=== PATIENT | male | born 1960 | race Caucasian/White ===

== ENCOUNTER 2017-09-11 12:35 | Day surgery (SDC) | payer OTHER ==
[~2017-09-11 12:35] MED LIST: CLONAZEPAM1 MG PO; LUNESTA3 MG PO; ZOLOFT100 MG PO
== END 2017-09-11 16:50 | disposition home or self-care (01) ==
LOC: AMB-ENDOS 12:35
DX: K57.32 Diverticulitis of large intestine without perforation or abscess without bleeding (principal); K64.1 Second degree hemorrhoids

== ENCOUNTER 2020-08-31 06:49 | Day surgery (SDC) | payer OTHER | END 2020-08-31 13:45 | disposition home or self-care (01) | LOC: AMB-ENDOS 06:49 | PROVIDERS: ATTEND Colon & Rectal Surgery | DX: K57.32 Diverticulitis of large intestine without perforation or abscess without bleeding (principal); K64.0 First degree hemorrhoids; Z20.822 Contact with and (suspected) exposure to COVID-19 ==